=== PATIENT | male | born 1955 | race Caucasian/White ===

== ENCOUNTER → 2019-06-12 | Outpatient (CLI) | payer BC ==
--- NOTE | 2019-06-12 15:08 | XR ---
EXAMINATION TYPE: XR lumbosacral spine min 4V DATE OF EXAM: 06/12/2019 CLINICAL HISTORY: pain COMPARISON: NONE TECHNIQUE: Frontal, lateral, and oblique images of the lumbar spine are obtained. FINDINGS: There are 5 lumbar type vertebral bodies identified. The lumbar spine shows satisfactory alignment without evidence of acute fracture or dislocation. Vertebral body heights are within normal limits. Scattered degenerative disc disease and spondylosis. Lower lumbar facet joint arthropathy. The overlying soft tissue appears unremarkable. IMPRESSION: No acute fracture or dislocation is seen in the lumbar spine.ICD 10 NO FRACTURE, INITIAL EVALUATION
== END | disposition home or self-care (01) ==
LOC: RADXRYALE 13:48
PROVIDERS: ATTEND Internal Medicine
DX: R53.1 Weakness (principal)
CPT/HCPCS: 72110

== ENCOUNTER 2025-02-27 09:41 | Day surgery (SDC) | payer BC ==
[2025-02-27] MEDS: IV FLUID CONTINUATION 1,000 ML IV ONE (10:21)
[2025-02-27] MEDS: LACTATED RINGERS 1,000 ML IV SCH (10:32)
[2025-02-27] MEDS: LIDOCAINE 1% (10MG/ML) FOR IV START INTRADERMA STA (10:33)
[2025-02-27] MEDS ORDERED: PHENYLEPHRINE 10 MG/ML VIAL ONE (10:43)
[2025-02-27] MEDS ORDERED: PROPOFOL 10 MG/ML 20 ML VIAL IV ONE (10:43)
[2025-02-27 10:44] VITALS: TEMP 97.6
[2025-02-27 10:55] LABS: Glucose,Whole Blood 132 mg/dL (70-110)
--- NOTE | 2025-02-27 10:59 | P.PCN ---
Date of Procedure: 02/27/25 Procedure(s) Performed: BRIEF HISTORY: Patient is a 69-year-old pleasant white male scheduled for an elective colonoscopy as a part of screening for prior history of colon polyps. Last colonoscopy was 5 years ago PROCEDURE PERFORMED: Colonoscopy with snare polypectomy. PREOPERATIVE DIAGNOSIS: Screening for prior history of colon polyps. IV sedation per Anesthesia. PROCEDURE: After informed consent was obtained, the patient, was brought into the endoscopy unit. IV sedation was administered by Anesthesia under continuous monitoring. Digital rectal examination was normal. Initially the Olympus CF-160 flexible video colonoscope was then inserted in the rectum, gradually advanced into the cecum without any difficulty. Careful examination was performed as the scope was gradually being withdrawn. Ileocecal valve and the appendiceal orifice were visualized and appeared normal. Prep was excellent. Mucosa of the cecum, ascending colon, normal-appearing the transverse colon there was a 7 mm sessile polyp removed by cold snare polypectomy. Rest of the transverse colon, descending colon, sigmoid colon, and rectum appeared normal. Scattered sigmoid diverticulosis. Retroflexion was performed in the rectum and no lesions were seen. The patient tolerated the procedure well. IMPRESSION: 7 mm transverse colon polyp status post cold snare polypectomy Scattered sigmoid diverticulosis RECOMMENDATIONS: Findings of this examination were discussed with the patient as well as his family. He was advised to follow-up with the biopsy results. If the biopsy reveals adenoma he can have a repeat colonoscopy in 5 years..
[2025-02-27 11:09] VITALS: RESP 18
[2025-02-27 11:12] VITALS: BP 93/56; PULSE 79
== END 2025-02-27 11:40 | disposition home or self-care (01) ==
LOC: ORWHC2ENDO 09:41
PROVIDERS: ATTEND Internal Medicine Gastroenterology
DX: Z12.11 Encounter for screening for malignant neoplasm of colon (principal); D12.3 Benign neoplasm of transverse colon; K57.30 Diverticulosis of large intestine without perforation or abscess without bleeding; E11.9 Type 2 diabetes mellitus without complications; E07.9 Disorder of thyroid, unspecified; N28.9 Disorder of kidney and ureter, unspecified; G81.94 Hemiplegia, unspecified affecting left nondominant side; Z79.84 Long term (current) use of oral hypoglycemic drugs; Z79.890 Hormone replacement therapy; Z79.899 Other long term (current) drug therapy; Z86.0100 Personal history of colon polyps, unspecified
CPT/HCPCS: 88305; 45385; J2704; J2371